=== PATIENT | female | born 1990 | race Caucasian/White ===

== ENCOUNTER 2017-06-29 19:13 | Emergency (ER) | payer OTHER ==
[~2017-06-29] VITALS: Ht 142.2 cm; Wt 52.2 kg
[~2017-06-29 19:13] MED LIST: AMOXICILLIN500 M1 PO
[2017-06-29] MEDS ORDERED: ORPHENADRINE C100 MG PO (21:43)
[2017-06-29] MEDS ORDERED: KETO10TA2 PO (21:43)
== END 2017-06-29 22:30 | disposition home or self-care (01) ==
LOC: ER 19:13
DX: M62.830 Muscle spasm of back (principal)

== ENCOUNTER → 2018-01-18 | Emergency (ER) | payer OTHER ==
[~2018-01-18] VITALS: Ht 142.2 cm; Wt 56.7 kg
[~2018-01-18] MED LIST changes: +KETO10TA2 PO; +OMEPRAZOLE20 M1; +ORPHENADRINE C100 MG PO
== END | disposition home or self-care (01) ==
LOC: ER 22:07
DX: H57.8 Other specified disorders of eye and adnexa (principal)

== ENCOUNTER 2018-10-18 20:35 | Emergency (ER) | payer OTHER ==
[~2018-10-18] VITALS: Ht 142.2 cm; Wt 60.3 kg
[2018-10-19] MEDS ORDERED: MOBIC15 MG PO (03:34)
[2018-10-19] MEDS ORDERED: PEPCID40 MG PO (03:34)
[2018-10-19] MEDS ORDERED: ZOFRAN4 MG PO (03:34)
== END 2018-10-19 03:46 | disposition home or self-care (01) ==
LOC: ER 20:35
DX: K52.9 Noninfective gastroenteritis and colitis, unspecified (principal); R10.84 Generalized abdominal pain

== ENCOUNTER 2019-06-23 11:16 | Emergency (ER) | payer OTHER ==
[~2019-06-23] VITALS: Ht 142.2 cm; Wt 59.0 kg
[~2019-06-23 11:16] MED LIST changes: +MOBIC15 MG PO; +PEPCID40 MG PO; +ZOFRAN4 MG PO
[2019-06-23] MEDS ORDERED: TENORMIN50 M1 (11:37)
== END 2019-06-23 16:58 | disposition home or self-care (01) ==
LOC: ER 11:16
DX: J11.1 Influenza due to unidentified influenza virus with other respiratory manifestations (principal); E86.0 Dehydration

== ENCOUNTER 2020-10-30 21:33 | Emergency (ER) | payer OTHER ==
[~2020-10-30] VITALS: Ht 142.2 cm; Wt 63.5 kg
[~2020-10-30 21:33] MED LIST changes: +TENORMIN50 M1
== END 2020-10-30 22:36 | disposition home or self-care (01) ==
LOC: ER 21:33
DX: G56.01 Carpal tunnel syndrome, right upper limb (principal)

== ENCOUNTER 2021-01-20 20:56 | Emergency (ER) | payer OTHER ==
[~2021-01-20] VITALS: Ht 142.2 cm; Wt 63.5 kg
[2021-01-20] MEDS ORDERED: TAMS0.4C PO (21:35)
[2021-01-20] MEDS ORDERED: LEVOFLOXACIN5 ML (21:36)
[2021-01-20] MEDS ORDERED: STONEX (21:36)
[2021-01-20] MEDS ORDERED: KETO10TA2 PO (23:43)
== END 2021-01-20 23:56 | disposition home or self-care (01) ==
LOC: ER 20:56
DX: N20.2 Calculus of kidney with calculus of ureter (principal)

== ENCOUNTER 2023-07-30 07:18 | Inpatient (IN) | payer OTHER ==
[~2023-07-30] VITALS: Ht 142.2 cm; Wt 68.9 kg
[~2023-07-30 07:18] MED LIST changes: +LEVOFLOXACIN5 ML; +STONEX; +TAMS0.4C PO
[2023-07-30] MEDS ORDERED: LABETALOL HCL100 MG PO (07:35)
[2023-07-30] MEDS ORDERED: PRENATAL + DHA1 EAC1 (07:36)
[2023-07-30] MEDS ORDERED: ONDANSETRON HCL 2 MG/ML VIAL IV STA (08:07)
[2023-07-30] MEDS ORDERED: 0.9 % SODIUM CHLORIDE 1,000 ML IV STA (08:08)
[2023-07-30] MEDS ORDERED: KETOROLAC TROMETHAMINE 60 MG VIAL IM STA (08:48)
[2023-07-30 09:06] LABS: URINE APPEARANCE Turbid; URINE BILIRRUBIN Negative (NEGATIVE); URINE BLOOD Large; URINE COLOR Yellow; URINE GLUCOSE Negative (NEGATIVE); URINE LEUKOCYTE Trace; URINE NITRATE Negative; URINE PROTEIN Trace (NEGATIVE); URINE UROBILINOGEN 0.2 E.U./dl
[2023-07-30 09:10] LABS: URINE BACTERIA 3908.3 uL (0.0-1933); URINE EPITHELIAL CELLS 65.3 uL (0.0-38.8); URINE RBC 1577.6 uL (0.0-20.8); URINE WBC 28.9 uL (0.0-23.2)
[2023-07-30 10:15] LABS: HEMATOCRIT 35.5 % (36.0-45.00); HEMOGLOBIN 12.8 g/dL (12.0-15.00); MEAN CELL VOLUME 87.7 fL (80.00-100.00); MEAN CORPUSCULAR HEMOGLOBIN 31.6 pg (27.00-32.0); RED BLOOD COUNT 4.04 M/uL (4.00-6.00); RED CELL DISTRIBUTION WIDTH 12.8 % (11.5-14.5)
[2023-07-30 10:30] LABS: CALCIUM 9.6 mg/dL (8.5-10.1); CREATININE SERUM 0.61 mg/dL (0.55-1.02); GFR 115.16; POTASSIUM 4.37 mEq/L (3.5-5.1)
[2023-07-30 10:53] LABS: PLATELET COUNT 492 K/uL (150-450)
[2023-07-30] MEDS ORDERED: AZITHROMYCIN 500 MG VIAL IV STA (11:59)
[2023-07-30] MEDS ORDERED: ACETAMINOPHEN 500 MG GEL..CAP PO PRN (14:00)
[2023-07-30] MEDS ORDERED: RINGERS SOLUTION,LACTATED 1,000 ML IV SCH (14:00)
[2023-07-30] MEDS ORDERED: KETOROLAC TROMETHAMINE 60 MG VIAL IM ONE (19:15)
[2023-07-30] MEDS ORDERED: ONDANSETRON HCL 2 MG/ML VIAL IV SCH ×2 (21:00)
[2023-07-31 01:52] LABS: HEMATOCRIT 33.4 % (36.0-45.00); HEMOGLOBIN 11.2 g/dL (12.0-15.00); MEAN CELL VOLUME 87.1 fL (80.00-100.00); MEAN CORPUSCULAR HEMOGLOBIN 29.2 pg (27.00-32.0); MEAN CORPUSCULAR HGB CONC 33.5 g/dl (32.0-36.0); PLATELET COUNT 425 K/uL (150-450); RED BLOOD COUNT 3.83 M/uL (4.00-6.00); RED CELL DISTRIBUTION WIDTH 12.5 % (11.5-14.5)
[2023-07-31] MEDS ORDERED: AZITHROMYCIN 500 MG in 0.9 % SODIUM CHLORIDE 250 ML IV SCH (09:00)
[2023-07-31] MEDS ORDERED: PNV,CALCIUM 72/IRON/FOLIC ACID 1 TAB TABLET PO SCH (09:00)
[2023-07-31] MEDS ORDERED: CEFAZOLIN SODIUM 1,000 MG VIAL IV SCH (12:00)
[2023-08-01] MEDS ORDERED: LABETALOL HCL 100 MG TABLET PO SCH (21:00)
[2023-08-02] MEDS ORDERED: DOCUSATE SODIUM 100MG CAP PO SCH (09:14)
== END 2023-08-04 10:44 | disposition home or self-care (01) | DRG 832 ==
LOC: ER 07:18 → OB/GYN 14:25
PROVIDERS: General Practice; Specialist; ADMIT Obstetrics & Gynecology; ATTEND Obstetrics & Gynecology
PROC: 4A1HXCZ Monitoring of Products of Conception, Cardiac Rate, External Approach (ICD-10-PCS; principal; 2023-07-30)
PROC: BT43ZZZ Ultrasonography of Bilateral Kidneys (ICD-10-PCS; 2023-07-31)
PROC: BY49ZZZ Ultrasonography of First Trimester, Single Fetus (ICD-10-PCS; 2023-07-31)
PROC: BU4CZZZ Ultrasonography of Uterus and Ovaries (ICD-10-PCS; 2023-07-31)
DX: O23.41 Unspecified infection of urinary tract in pregnancy, first trimester (principal); N20.1 Calculus of ureter; O26.891 Other specified pregnancy related conditions, first trimester; R10.2 Pelvic and perineal pain; O34.81 Maternal care for other abnormalities of pelvic organs, first trimester; O36.80X0 Pregnancy with inconclusive fetal viability, not applicable or unspecified; O26.851 Spotting complicating pregnancy, first trimester; Z3A.10 10 weeks gestation of pregnancy; Z20.822 Contact with and (suspected) exposure to COVID-19

== ENCOUNTER → 2023-08-29 14:45 | Outpatient (CLI) | payer OTHER ==
[~2023-08-29 14:45] MED LIST changes: +LABETALOL HCL100 MG PO; +PRENATAL + DHA1 EAC1
== END | disposition home or self-care (01) ==
LOC: PRENATAL 14:45
PROVIDERS: ATTEND Obstetrics & Gynecology Maternal & Fetal Medicine
DX: O36.80X0 Pregnancy with inconclusive fetal viability, not applicable or unspecified (principal); O10.019 Pre-existing essential hypertension complicating pregnancy, unspecified trimester; Z36.82 Encounter for antenatal screening for nuchal translucency; Z3A.14 14 weeks gestation of pregnancy

== ENCOUNTER → 2023-11-21 | Emergency (ER) | payer OTHER ==
[~2023-11-21] VITALS: Ht 142.2 cm; Wt 68.9 kg
[~2023-11-21] MED LIST changes: +ACETAMINOPHEN 500 MG GEL..CAP PO STA; +MACROBID 100 M100 MG PO
[2023-11-22 03:34] LABS: URINE APPEARANCE Clear; URINE BILIRRUBIN Negative (NEGATIVE); URINE BLOOD Negative; URINE COLOR Dark Yellow; URINE GLUCOSE Negative (NEGATIVE); URINE LEUKOCYTE Trace; URINE NITRATE Negative; URINE PROTEIN Negative (NEGATIVE)
[2023-11-22 03:38] LABS: URINE EPITHELIAL CELLS 79.9 uL (0.0-38.8); URINE RBC 2.1 uL (0.0-20.8)
== END | disposition home or self-care (01) ==
LOC: ER 22:25
PROVIDERS: General Practice
DX: O23.41 Unspecified infection of urinary tract in pregnancy, first trimester (principal); Z91.041 Radiographic dye allergy status

== ENCOUNTER 2023-12-05 09:22 | Outpatient (CLI) | payer OTHER ==
[~2023-12-05 09:22] MED LIST changes: -ACETAMINOPHEN 500 MG GEL..CAP PO STA
== END 2023-12-05 09:23 | disposition home or self-care (01) ==
LOC: PRENATAL 09:22
PROVIDERS: ATTEND Obstetrics & Gynecology Maternal & Fetal Medicine
DX: O26.843 Uterine size-date discrepancy, third trimester (principal); O16.3 Unspecified maternal hypertension, third trimester; Z3A.28 28 weeks gestation of pregnancy

== ENCOUNTER 2023-12-28 13:51 | Outpatient (CLI) | payer OTHER | END 2023-12-28 13:52 | disposition home or self-care (01) | LOC: PRENATAL 13:51 | PROVIDERS: ATTEND Obstetrics & Gynecology Maternal & Fetal Medicine | DX: O26.843 Uterine size-date discrepancy, third trimester (principal); O36.8130 Decreased fetal movements, third trimester, not applicable or unspecified; O36.5930 Maternal care for other known or suspected poor fetal growth, third trimester, not applicable or unspecified; Z3A.31 31 weeks gestation of pregnancy ==

== ENCOUNTER 2024-01-05 08:48 | Outpatient (CLI) | payer OTHER | END 2024-01-05 08:57 | disposition home or self-care (01) | LOC: PRENATAL 08:48 | PROVIDERS: ATTEND Obstetrics & Gynecology Maternal & Fetal Medicine | DX: O36.8130 Decreased fetal movements, third trimester, not applicable or unspecified (principal); O36.5930 Maternal care for other known or suspected poor fetal growth, third trimester, not applicable or unspecified; Z3A.32 32 weeks gestation of pregnancy; O16.3 Unspecified maternal hypertension, third trimester ==

== ENCOUNTER 2024-01-12 13:49 | Outpatient (CLI) | payer OTHER | END 2024-01-12 13:50 | disposition home or self-care (01) | LOC: PRENATAL 13:49 | PROVIDERS: ATTEND Obstetrics & Gynecology Maternal & Fetal Medicine | DX: O36.8130 Decreased fetal movements, third trimester, not applicable or unspecified (principal); O36.5930 Maternal care for other known or suspected poor fetal growth, third trimester, not applicable or unspecified; O16.3 Unspecified maternal hypertension, third trimester; Z3A.33 33 weeks gestation of pregnancy ==

== ENCOUNTER 2024-01-18 10:48 | Outpatient (CLI) | payer OTHER | END 2024-01-18 10:49 | disposition home or self-care (01) | LOC: PRENATAL 10:48 | PROVIDERS: ATTEND Obstetrics & Gynecology Maternal & Fetal Medicine | DX: Z76.1 Encounter for health supervision and care of foundling (principal) ==

== ENCOUNTER → 2024-01-22 14:01 | Outpatient (CLI) | payer OTHER | END | disposition home or self-care (01) | LOC: PRENATAL 14:01 | PROVIDERS: ATTEND Obstetrics & Gynecology Maternal & Fetal Medicine | DX: Z76.1 Encounter for health supervision and care of foundling (principal) ==

== ENCOUNTER 2024-01-26 11:19 | Outpatient (CLI) | payer OTHER | END 2024-01-26 14:17 | disposition home or self-care (01) | LOC: PRENATAL 11:19 | PROVIDERS: ATTEND Obstetrics & Gynecology Maternal & Fetal Medicine | DX: O36.8199 Decreased fetal movements, unspecified trimester, other fetus (principal); O36.5990 Maternal care for other known or suspected poor fetal growth, unspecified trimester, not applicable or unspecified; O10.019 Pre-existing essential hypertension complicating pregnancy, unspecified trimester ==

== ENCOUNTER 2024-02-02 08:30 | Outpatient (CLI) | payer OTHER | END 2024-02-02 08:31 | disposition home or self-care (01) | LOC: PRENATAL 08:30 | PROVIDERS: ATTEND Obstetrics & Gynecology Maternal & Fetal Medicine | DX: O26.849 Uterine size-date discrepancy, unspecified trimester (principal); O36.8199 Decreased fetal movements, unspecified trimester, other fetus; O36.5990 Maternal care for other known or suspected poor fetal growth, unspecified trimester, not applicable or unspecified; O10.019 Pre-existing essential hypertension complicating pregnancy, unspecified trimester; Z3A.36 36 weeks gestation of pregnancy ==

== ENCOUNTER 2024-02-06 22:06 | Inpatient (IN) | payer OTHER ==
[~2024-02-06] VITALS: Ht 142.2 cm; Wt 2.7 kg
[2024-02-06 23:41] LABS: URINE BACTERIA 6498.8 uL (0.0-1933); URINE RBC 61.9 uL (0.0-20.8); URINE WBC 15.3 uL (0.0-23.2)
[2024-02-06 23:47] LABS: URINE BILIRRUBIN NEGATIVE (NEGATIVE); URINE BLOOD NEGATIVE; URINE KETONE TRACE (NEGATIVE); URINE LEUKOCYTE NEGATIVE; URINE NITRATE NEGATIVE; URINE PROTEIN TRACE (NEGATIVE); URINE UROBILINOGEN 0.2 E.U./dl
[2024-02-06 23:51] LABS: HEMATOCRIT 31.3 % (36.0-45.00); HEMOGLOBIN 10.6 g/dL (12.0-15.00); MEAN CELL VOLUME 87.8 fL (80.00-100.00); MEAN CORPUSCULAR HEMOGLOBIN 29.7 pg (27.00-32.0); MEAN CORPUSCULAR HGB CONC 33.9 g/dl (32.0-36.0); PLATELET COUNT 363 K/uL (150-450); RED BLOOD COUNT 3.56 M/uL (4.00-6.00); RED CELL DISTRIBUTION WIDTH 14.9 % (11.5-14.5)
[2024-02-06 23:52] LABS: URINE EPITHELIAL CELLS > 201.7 uL (0.0-38.8)
[2024-02-06 23:53] LABS: URINE APPEARANCE SL CLOUDY; URINE COLOR YELLOW; URINE GLUCOSE 100 MG/DL (NEGATIVE)
[2024-02-07 00:01] LABS: INR 0.94; PARTIAL THROMBOPLASTIN TIME 25.4 SECONDS (22.0-34.0); PROTHROMBIN TIME 10.3 SECONDS (9.0-11.5)
[2024-02-07 01:30] VITALS: BP 131/77
[2024-02-07] MEDS ORDERED: RINGERS SOLUTION,LACTATED 1,000 ML IV SCH ×2 (02:00→18:15)
[2024-02-07] MEDS ORDERED: AMPICILLIN SODIUM 1,000 MG VIAL ONE (04:15)
[2024-02-07 04:41] VITALS: BP 119/71
[2024-02-07 07:33] VITALS: BP 112/71
[2024-02-07 11:13] VITALS: BP 106/64
[2024-02-07] MEDS ORDERED: OXYTOCIN 10 UNITS/ML VIAL ONE (15:19)
[2024-02-07] MEDS ORDERED: ERYTHROMYCIN BASE OPHT 1GM EACH TUBE OP ONE (15:19)
[2024-02-07 15:33] VITALS: BP 122/72
[2024-02-07] MEDS ORDERED: CEFAZOLIN SODIUM 1,000 MG VIAL ONE (17:05)
[2024-02-07] MEDS ORDERED: MEPERIDINE HCL/PF 50 MG/ML VIAL IM PRN (18:15)
[2024-02-07] MEDS ORDERED: CHLORHEXIDINE GLUCONATE 120 ML BOTTLE TOP SCH (18:15)
[2024-02-07] MEDS ORDERED: PROMETHAZINE HCL 25 MG/ML AMPUL IM PRN (18:15)
[2024-02-07] MEDS ORDERED: OXYTOCIN 1,000 ML IV SCH (18:15)
[2024-02-07] MEDS ORDERED: KETOROLAC TROMETHAMINE 60 MG VIAL IM STA (18:28)
[2024-02-07] MEDS ORDERED: MORPHINE SULFATE 4 MG/ML VIAL IV ONE (21:05)
[2024-02-07] MEDS ORDERED: KETOROLAC TROMETHAMINE 60 MG VIAL IM ONE (21:52)
[2024-02-07 23:12] LABS: HEMATOCRIT 33.7 % (36.0-45.00); HEMOGLOBIN 11.4 g/dL (12.0-15.00); MEAN CELL VOLUME 88.3 fL (80.00-100.00); MEAN CORPUSCULAR HEMOGLOBIN 29.8 pg (27.00-32.0); MEAN CORPUSCULAR HGB CONC 33.7 g/dl (32.0-36.0); PLATELET COUNT 326 K/uL (150-450); RED BLOOD COUNT 3.82 M/uL (4.00-6.00)
[2024-02-08] MEDS ORDERED: OXYTOCIN 10 UNITS/ML VIAL ONE (00:41)
[2024-02-08 01:25] VITALS: BP 122/81
[2024-02-08 05:00] VITALS: BP 117/80
[2024-02-08 08:44] VITALS: BP 116/79
[2024-02-08] MEDS ORDERED: OxyCODONE HCL/APAP UD (PERCOCET) PO PRN (09:00)
[2024-02-08 16:00] VITALS: BP 122/83
[2024-02-08 20:43] VITALS: BP 121/85
[2024-02-09] VITALS: BP 113/73; BP 115/75
[2024-02-09 08:37] VITALS: BP 108/68
[2024-02-09 13:10] VITALS: BP 121/82
[2024-02-09 17:44] VITALS: BP 110/75
[2024-02-10 01:00] VITALS: BP 109/77
[2024-02-10 07:37] VITALS: BP 103/71
[2024-02-10] MEDS ORDERED: IBUPROFEN800 MG PO (08:37)
== END 2024-02-10 17:41 | disposition home or self-care (01) | DRG 788 ==
LOC: O/R 22:06 → LDR 22:06 → O/R 02-07 16:50 → OB/GYN 02-07 22:45
PROVIDERS: ADMIT Obstetrics & Gynecology; ATTEND Obstetrics & Gynecology
PROC: 4A1HXCZ Monitoring of Products of Conception, Cardiac Rate, External Approach (ICD-10-PCS; 2024-02-06)
PROC: 10D00Z1 Extraction of Products of Conception, Low, Open Approach (ICD-10-PCS; principal; 2024-02-07 16:00)
DX: O36.5930 Maternal care for other known or suspected poor fetal growth, third trimester, not applicable or unspecified (principal); Z3A.37 37 weeks gestation of pregnancy; Z37.0 Single live birth; Z20.822 Contact with and (suspected) exposure to COVID-19